=== PATIENT | female | born 1955 | race Caucasian/White ===

== ENCOUNTER 2017-01-02 18:22 | Inpatient (IN) | payer MEDICAID, OTHER ==
[~2017-01-02] VITALS: Ht 157.5 cm; Wt 67.8 kg
[2017-01-02] MEDS ORDERED: [UNRECOGNIZED DRUG - CODE] (18:29)
[2017-01-02] MEDS ORDERED: LORAZEPAM 0.5MG TABLET PO ONE (18:45)
[2017-01-02 19:11] LABS: BASOPHILS % 0.8 % (0.0-2.0); EOSINOPHILS % 3.1 % (0.0-5.0); HEMATOCRIT. 30.8 % (36.0-48.0); HEMOGLOBIN. 10.5 g/dL (12.0-16.0); LYMPHOCYTES % 33.7 % (20.0-50.0); MEAN CORPUSCULAR HEMOGLOBIN 28.7 pg (28.0-32.0); MEAN CORPUSCULAR VOLUME 84.2 fL (81.0-99.0); MEAN PLATELET VOLUME 8.6 fl (7.4-10.4); MONOCYTES % 7.2 % (2.0-8.0); NEUTROPHILS % 55.2 % (40.0-76.0); PLATELET 230 x1000/uL (130-400); RED BLOOD CELL COUNT 3.66 mill/uL (4.2-5.4); RED CELL DISTRIBUTION WIDTH 13.8 % (11.6-14.6)
[2017-01-02 19:14] LABS: PROTHROMBIN TIME 10.7 sec (9.4-11.6)
[2017-01-02 19:20] LABS: CARBON DIOXIDE 26 mEq/L (21-32); CHLORIDE 109 mEq/L (98-107); ETHANOL BLOOD < 10 mg/dL; TROPONIN I 0.05 ng/mL (0.00-0.04)
[2017-01-02] MEDS ORDERED: SODIUM CHLORIDE 0.9% 1,000 ML IV ONE (21:00)
[2017-01-02] MEDS ORDERED: ASPIRIN 325MG TABLET PO ONE (21:00)
[2017-01-02 23:48] VITALS: BP 156/77
[2017-01-03] VITALS: BP 156/77
[2017-01-03] MEDS ORDERED: LISI40TA4 PO (02:53)
[2017-01-03] MEDS ORDERED: FURO40TA5 PO (02:53)
[2017-01-03 04:00] VITALS: BP 147/69
[2017-01-03] MEDS ORDERED: DEXTROSE 50% WATER 50ML SYRINGE IV PRN (05:15)
[2017-01-03] MEDS ORDERED: CLONIDINE 0.1MG TABLET PO PRN (05:15)
[2017-01-03] MEDS: MORPHINE SULFATE 4 MG/ML CPJ (NOT FOR IM USE) IV PRN ×3 (05:20→19:43)
[2017-01-03] MEDS: ONDANSETRON HCL 4MG/2ML VIAL IV PRN ×3 (05:25→19:43)
[2017-01-03] MEDS: BLOOD SUGAR DIAGNOSTIC STRIP TEST SCH ×4 (06:42→21:22)
[2017-01-03] MEDS: INSULIN LISPRO 100 UNITS/ML SUBCUT SCH ×4 (06:42→21:00)
[2017-01-03 08:00] VITALS: BP 143/73
[2017-01-03] MEDS: ASPIRIN 81MG EC TABLET PO SCH (08:49)
[2017-01-03] MEDS: PANTOPRAZOLE SODIUM 40 MG/VIAL IV SCH (08:49)
[2017-01-03 10:01] LABS: TROPONIN I 0.05 ng/mL (0.00-0.04)
[2017-01-03 12:00] VITALS: BP 155/76
[2017-01-03] MEDS ORDERED: INFLUENZA VIRUS VACCINE 0.5ML SYR IM ONE (12:00)
[2017-01-03 13:27] LABS: CLARITY URINE CLOUDY (CLEAR); COLOR URINE YELLOW (YELLOW); GLUCOSE URINE NEGATIVE (NEGATIVE); KETONES URINE NEGATIVE (NEGATIVE); LEUKOCYTE ESTERASE URINE 2+ (NEGATIVE); NITRITE URINE NEGATIVE (NEGATIVE); OCCULT BLOOD URINE 2+ (NEGATIVE); PROTEIN URINE 3+ (NEGATIVE); SPECIFIC GRAVITY URINE 1.022 (1.005-1.030); UROBILINOGEN URINE 0.2 E.U./dL (0.2-1.0)
[2017-01-03 13:37] LABS: CREATINE KINASE MB FRACTION 2.2 ng/mL (0.5-3.6); TROPONIN I 0.05 ng/mL (0.00-0.04)
[2017-01-03 13:46] LABS: *AMPHETAMINES SCREEN URINE NEGATIVE (NEGATIVE); *BARBITURATES SCREEN URINE NEGATIVE (NEGATIVE); *BENZODIAZEPINES SCREEN URINE NEGATIVE (NEGATIVE); *COCAINE SCREEN URINE NEGATIVE (NEGATIVE); CANNABINOID URINE SCREEN NEGATIVE (NEGATIVE); METHADONE URINE SCREEN NEGATIVE (NEGATIVE); OPIATES URINE SCREEN PRESUMTIVE POSITIVE (NEGATIVE); PHENCYCLIDINE URINE SCREEN NEGATIVE (NEGATIVE)
[2017-01-03 16:00] VITALS: BP 153/79
[2017-01-03 20:00] VITALS: BP 134/65
[2017-01-03] MEDS: AMLODIPINE 2.5MG TABLET PO SCH (21:36)
[2017-01-04] VITALS: BP 133/67
[2017-01-04 04:00] VITALS: BP 147/76
[2017-01-04] MEDS: ONDANSETRON HCL 4MG/2ML VIAL IV PRN ×4 (04:55→22:05)
[2017-01-04] MEDS: MORPHINE SULFATE 4 MG/ML CPJ (NOT FOR IM USE) IV PRN ×4 (04:55→21:59)
[2017-01-04] MEDS: BLOOD SUGAR DIAGNOSTIC STRIP TEST SCH ×4 (06:50→21:00)
[2017-01-04] MEDS: INSULIN LISPRO 100 UNITS/ML SUBCUT SCH ×4 (06:56→22:40)
[2017-01-04 08:00] VITALS: BP 141/66
[2017-01-04] MEDS: ASPIRIN 81MG EC TABLET PO SCH (09:17)
[2017-01-04] MEDS: PANTOPRAZOLE SODIUM 40 MG/VIAL IV SCH (09:17)
[2017-01-04] MEDS: AMLODIPINE 2.5MG TABLET PO SCH ×2 (09:18→21:59)
[2017-01-04] MEDS: FUROSEMIDE 40MG TABLET PO SCH (11:44)
[2017-01-04] MEDS: LEVOFLOXACIN 500MG PREMIX 100 ML IV SCH (11:45)
[2017-01-04] MEDS ORDERED: LACTULOSE 20G/30ML UDC PO PRN (19:30)
[2017-01-04] MEDS ORDERED: DOCUSATE SODIUM 100MG CAPSULE PO PRN (19:30)
[2017-01-04 20:00] VITALS: BP 152/78
[2017-01-05 03:59] VITALS: BP 134/65
[2017-01-05] MEDS: BLOOD SUGAR DIAGNOSTIC STRIP TEST SCH ×2 (06:14→11:22)
[2017-01-05] MEDS: MORPHINE SULFATE 4 MG/ML CPJ (NOT FOR IM USE) IV PRN ×2 (06:15→12:48)
[2017-01-05] MEDS: ONDANSETRON HCL 4MG/2ML VIAL IV PRN (06:21)
[2017-01-05] MEDS: INSULIN LISPRO 100 UNITS/ML SUBCUT SCH ×2 (06:25→12:50)
[2017-01-05] MEDS: ASPIRIN 81MG EC TABLET PO SCH (08:33)
[2017-01-05] MEDS: AMLODIPINE 2.5MG TABLET PO SCH (08:33)
[2017-01-05] MEDS: FUROSEMIDE 40MG TABLET PO SCH (08:33)
[2017-01-05] MEDS: PANTOPRAZOLE SODIUM 40 MG/VIAL IV SCH (08:33)
[2017-01-05] MEDS: LEVOFLOXACIN 500MG PREMIX 100 ML IV SCH (11:09)
[2017-01-05 11:21] VITALS: BP 150/72
[2017-01-05 15:17] VITALS: BP 116/77
== END 2017-01-05 16:35 | disposition home or self-care (01) | DRG 199 ==
LOC: ER 18:22 → 8WST 21:08 → ENRESERV 22:04
PROVIDERS: ADMIT Hospitalist; ATTEND Hospitalist
DX: I16.0 Hypertensive urgency (principal); E11.65 Type 2 diabetes mellitus with hyperglycemia; I25.10 Atherosclerotic heart disease of native coronary artery without angina pectoris; E11.9 Type 2 diabetes mellitus without complications; N39.0 Urinary tract infection, site not specified; N28.9 Disorder of kidney and ureter, unspecified; Z79.4 Long term (current) use of insulin; Z79.899 Other long term (current) drug therapy; Z95.810 Presence of automatic (implantable) cardiac defibrillator; M94.0 Chondrocostal junction syndrome [Tietze]
CPT/HCPCS: 36415; 71010; 80053; 80061; 80305; 81001; 82550; 82553; 82962; 84484; 85025; 85610; 87077; 87086; 87186; 93005; 93306; 97116; 97162; 99285; C9113; G0482; J1815; J1956; J2270; J2405; J7030; J7050

== ENCOUNTER 2019-12-07 09:46 | Emergency (ER) | payer MEDICARE, MEDICAID ==
[~2019-12-07] VITALS: Ht 162.6 cm; Wt 90.0 kg
[~2019-12-07 09:46] MED LIST: FURO40TA5 PO; LISI40TA4 PO; [UNRECOGNIZED DRUG - CODE]
[2019-12-07] MEDS ORDERED: SODIUM CHLORIDE 0.9% 1,000 ML IV ONE (10:50)
[2019-12-07] MEDS ORDERED: ONDANSETRON HCL 4MG/2ML INJ IV STA (10:50)
[2019-12-07 12:06] LABS: BASOPHILS % 0.6 % (0.0-2.0); EOSINOPHILS % 0.2 % (0.0-5.0); HEMATOCRIT. 30.6 % (36.0-48.0); HEMOGLOBIN. 10.2 g/dL (12.0-16.0); MEAN CORPUSCULAR HEMOGLOBIN 28.9 pg (28.0-32.0); MEAN CORPUSCULAR VOLUME 86.5 fL (81.0-99.0); MEAN PLATELET VOLUME 7.8 fl (7.4-10.4); NEUTROPHILS % 69.2 % (40.0-76.0); PLATELET 262 x1000/uL (130-400); RED BLOOD CELL COUNT 3.54 mill/uL (4.2-5.4); RED CELL DISTRIBUTION WIDTH 13.7 % (11.6-14.6)
[2019-12-07 12:09] LABS: CLARITY URINE CLOUDY (CLEAR); COLOR URINE YELLOW (YELLOW); KETONES URINE NEGATIVE (NEGATIVE); LEUKOCYTE ESTERASE URINE 1+ (NEGATIVE); NITRITE URINE NEGATIVE (NEGATIVE); OCCULT BLOOD URINE NEGATIVE (NEGATIVE); PROTEIN URINE 2+ (NEGATIVE); SPECIFIC GRAVITY URINE 1.016 (1.005-1.030); UROBILINOGEN URINE 0.2 E.U./dL (0.2-1.0)
[2019-12-07 12:13] LABS: CHLORIDE 104 mEq/L (98-107)
[2019-12-07] MEDS ORDERED: CEFTRIAXONE 1 G PREMIX 50 ML IV ONE (12:45)
[2019-12-07 15:10] VITALS: BP 131/68
== END 2019-12-07 15:57 | disposition home or self-care (01) ==
LOC: ER 10:17
DX: R53.1 Weakness (principal); R11.0 Nausea; N39.0 Urinary tract infection, site not specified; E11.9 Type 2 diabetes mellitus without complications; I10 Essential (primary) hypertension; Z95.0 Presence of cardiac pacemaker; Z79.899 Other long term (current) drug therapy
CPT/HCPCS: 36415; 71045; 80053; 81003; 85025; 87086; 87635; 93005; 96361; 96365; 96366; 96375; 99285; C9803; J0696; J2405; J7030